=== PATIENT | male | born 1955 | race Caucasian/White ===

== ENCOUNTER → 2020-09-11 15:06 | Outpatient (BNVA) | payer SELFPAY | PROVIDERS: Visit Provider Physician Assistant Medical | DX: Z02.79 Encounter for issue of other medical certificate (principal) ==

== ENCOUNTER → 2021-09-07 14:47 | Outpatient (BNVA) | payer SELFPAY | PROVIDERS: Visit Provider Internal Medicine | DX: Z02.79 Encounter for issue of other medical certificate (principal) ==

== ENCOUNTER → 2022-09-05 15:09 | Outpatient (BNVA) | payer SELFPAY | PROVIDERS: Visit Provider Physician Assistant | DX: Z02.79 Encounter for issue of other medical certificate (principal) ==

== ENCOUNTER → 2023-09-03 15:11 | Outpatient (BNVA) | payer SELFPAY | PROVIDERS: Visit Provider Physician Assistant | DX: Z02.79 Encounter for issue of other medical certificate (principal) ==

== ENCOUNTER 2024-02-16 14:40 | Outpatient (AMB) | payer OTHER, SELFPAY ==
--- NOTE | 2024-02-16 15:26 | AM.OFFWIN_ITS ---
Intake Vital Signs 02/16/24 15:27 Weight 173 lb BP 140/80 H Blood Pressure Location Rt brachial Position Sitting Pulse 52 Pulse Source Pulse Oximeter Temp 99.1 F Temp Source Oral Pulse Oximetry (%) 98 Oxygen Delivery Method Room Air Intake Visit Reasons: [employer] Large swollen gland(?) base of neck Intake Note: Patient here for large lump on left side of neck that has been present for 2 weeks and growing. Patient Tobacco Use Status: Never used Tobacco Allergies Sulfa (Sulfonamide Antibiotics) Adverse Reaction (Mild, Verified 02/16/24 15:29) hives Do you need a note to return to daycare/school/sports/work: No HPI HPI Comments History of Present Illness Details History of Present Illness - The patient is a 69-year-old male pres enting with neck swelling. - Three weeks ago, the patient experienc ed swelling in the right axillary region, resolving spontaneously after a week. - Two weeks ago, the patient noticed swe lling in the neck without respiratory or swallowing difficulties. - Associated symptoms include night swea ts, while the patient denies fever and reports a slight weight gain. 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 Physical Exam General: Cooperative, healthy appearing, comfortable, no acute distress and well developed Orientation: Patient oriented x3 Limitations: No limitations Head: Normal to inspection Ears: Hearing grossly normal bilaterally Nose: Normal external nose present Face and sinus: Normal facial exam Eyes: Appearance normal, both eyes and all related structures Neck: 2cm round firm mobile lump in left supraclavicular area Respiratory: Normal respiratory effort and able to speak in complete sentences. Skin: No rashes or lesions noted, except for a small melanoma spot on the back (noted by pt, not visualized by this provider) Neuro: Patient oriented x3 Extremities: Normal to inspection PFSH Social History Patient Tobacco Use Status: Never used Tobacco Review of Systems Const All systems reviewed & are unremarkable except as noted in HPI and below Physical Exam Vital Signs: Last Vital Signs Temp 99.1 F 02/16/24 15:27 Pulse 52 02/16/24 15:27 BP 140/80 H 02/16/24 15:27 Pulse Ox 98 02/16/24 15:27 Oxygen Delivery Method Room Air 02/16/24 15:27 Assessment & Plan Assessment & Plan (1) Localized swelling, mass and lump, neck: Code(s): R22.1 - Localized swelling, mass and lump, neck Plan: VSS, mass is not interfering with pt's ability to swallow or breathe. The primary concern regarding the patient's neck swelling requires further diagnostic investigation. Due to the potential for lymphadenopathy or other etiologies such as an abscess or lipoma, immediate diagnostic imaging such as ultrasound and possibly CT scan is recommended. Prioritization of the neck swelling is advised to ascertain its nature and prevent complications. The patient should proceed to a hospital with ENT services in case specialized evaluation is required. Patient is opting to go to [facility], called [facility] with expect. Patient was informed and verbally consented to the use of an ambient scribe for clinic note documentation during this visit. Coding Level of Care Code New Pt Level 5 (50258) Diagnoses Localized swelling, mass and lump, neck R22.1
[2024-02-16 15:27] VITALS: BP 140/80; PULSE 52; TEMP 37.3; O2SAT 98
== END 2024-02-16 16:12 | disposition home or self-care (01) ==
PROVIDERS: Visit Provider Physician Assistant
DX: R22.1 Localized swelling, mass and lump, neck (principal)